=== PATIENT | female | born 1960 | race Two or more races ===

== ENCOUNTER 2017-03-26 10:23 | Emergency (ER) | payer MEDICAID, OTHER ==
[~2017-03-26] VITALS: Ht 165.1 cm; Wt 104.3 kg
[~2017-03-26 10:23] MED LIST: TAMO20TA4 PO
[2017-03-26 10:25] VITALS: BP 151/100
[2017-03-26] MEDS ORDERED: HYDROCODONE/APAP 5/325MG 1 EACH TABLET ONE (10:43)
[2017-03-26] MEDS ORDERED: HYDROCODONE/APAP 5/325MG 1 EACH TABLET PO ONE (11:00)
== END 2017-03-26 12:48 | disposition home or self-care (01) ==
LOC: ER 10:26
DX: S62.002A Unspecified fracture of navicular [scaphoid] bone of left wrist, initial encounter for closed fracture (principal); Z85.3 Personal history of malignant neoplasm of breast; W01.0XXA Fall on same level from slipping, tripping and stumbling without subsequent striking against object, initial encounter; Y93.89 Activity, other specified; Y92.89 Other specified places as the place of occurrence of the external cause; Y99.9 Unspecified external cause status
CPT/HCPCS: 29125; 73110; 99284; A4606; Z7610

== ENCOUNTER 2017-06-14 11:55 | Emergency (ER) | payer OTHER ==
[~2017-06-14] VITALS: Ht 167.6 cm; Wt 104.3 kg
--- NOTE | 2017-06-14 12:02 | NUR ---
PATIENT TO ED ACCOMPANIED BY SON DT LEFT KNEE PAIN SP FALL YESTERDAY, 02/10, ACHING NON RADIATING. PATIENT ABLE TO AMBULATE. NO OBVIOUS DEFORMITY NOTED. VSS
--- NOTE | 2017-06-14 12:06 | NUR ---
MD PYLE AT BEDSIDE
--- NOTE | 2017-06-14 12:15 | NUR ---
EXAMINING OFFICER AT BEDSIDE FOR KNEE XRAY
[2017-06-14] MEDS ORDERED: IBUPROFEN 600 MG TABLET PO ONE ×2 (12:26→12:30)
--- NOTE | 2017-06-14 12:28 | NUR ---
MEDICATED PT ORDERED
[2017-06-14 13:08] VITALS: BP 140/88
--- NOTE | 2017-06-14 13:08 | NUR ---
Patient discharged to home in stable condition. Written and verbal after care instructions given. Patient verbalizes understanding of instruction.
--- NOTE | 2017-06-14 13:19 | NUR ---
AWAITING FOR CD
== END 2017-06-14 13:22 | disposition home or self-care (01) ==
LOC: ER 11:56
DX: S89.92XA Unspecified injury of left lower leg, initial encounter (principal); Z85.3 Personal history of malignant neoplasm of breast; W18.2XXA Fall in (into) shower or empty bathtub, initial encounter; Y93.89 Activity, other specified; Y92.89 Other specified places as the place of occurrence of the external cause; Y99.9 Unspecified external cause status
CPT/HCPCS: 73564; 99284; A4606; Z7610

== ENCOUNTER 2017-10-25 19:57 | Emergency (ER) | payer OTHER ==
[~2017-10-25] VITALS: Ht 162.6 cm; Wt 108.0 kg
[2017-10-25 20:33] VITALS: BP 165/100
--- NOTE | 2017-10-25 20:35 | NUR ---
BB SELF FROM HOME WITH C/C OF COUGH AND CONGESTION X 1 MONTH, WITH C/O GENERALIZED BODY PAINS X 1 MONTH. LUNG SOUNDS CLEAR AND RESP EVEN AND UNLABORED. AMBULATORY WITH STEADY GAIT. SKIN WARM AND PINK. PT SPEAKS IN FULL SENTENCES. VSS AND NAD NOTED. AWAITING MD FOR EVAL.
== END 2017-10-25 21:02 | disposition home or self-care (01) ==
LOC: ER 19:57
DX: J20.9 Acute bronchitis, unspecified (principal); I10 Essential (primary) hypertension; R13.10 Dysphagia, unspecified; Z85.3 Personal history of malignant neoplasm of breast
CPT/HCPCS: 99283; A4606; Z7610

== ENCOUNTER 2020-12-27 15:13 | Emergency (ER) | payer OTHER ==
[~2020-12-27] VITALS: Ht 167.6 cm; Wt 108.9 kg
--- NOTE | 2020-12-27 15:34 | NUR ---
THE PATIENT IS BIB DAUGHTER FOR L FLANK PAIN X 4 DAYS, WORST TODAY. JUST FINISHED BACTRIM 2 DAYS. THE PATIENT RATES PAIN 10/10. DENIES NAUSEA AND VOMITING AT THIS TIME. IN ROOM AIR AND DENIES SOB. RESPIRATION REGULAR AND UNLABORED. WILL CONTINUE TO MONITOR.
[2020-12-27 15:58] LABS: BASOPHILS % (AUTO) 0.9 % (0.0-2.0); EOSINOPHILS % (AUTO) 1.4 % (0.0-6.0); HEMATOCRIT 40 % (33-45); HEMOGLOBIN 13.2 g/dL (11.5-14.8); LYMPHOCYTES # (AUTO) 1.8 /CMM (0.8-4.8); LYMPHOCYTES % (AUTO) 40.4 % (20.0-44.0); MEAN CORPUSCULAR HGB CONC 33 g/dl (31.0-36.0); MEAN CORPUSCULAR VOLUME 89 fL (82-100); MONOCYTES # (AUTO) 0.4 /CMM (0.1-1.30); MONOCYTES % (AUTO) 9.8 % (2.0-12.0); NEUTROPHILS # (AUTO) 2.2 /CMM (1.8-8.9); NEUTROPHILS % (AUTO) 47.5 % (43.0-81.0); PLATELET COUNT (AUTO) 267 /CMM (150-450); RED BLOOD CELL COUNT(AUTO) 4.45 MIL/uL (4.0-5.2); WHITE BLOOD COUNT (AUTO) 4.5 K/uL (4.3-11.0)
[2020-12-27] MEDS ORDERED: KETOROLAC TROMETHAMINE 15 MG/ML VIAL ONE (15:59)
[2020-12-27] MEDS ORDERED: KETOROLAC TROMETHAMINE INJ 30 MG/ML VIAL IV ONE (16:00)
[2020-12-27] MEDS ORDERED: MORPHINE SULFATE INJ 4 MG/ML DISP.SYRIN ONE (16:00)
[2020-12-27] MEDS ORDERED: MORPHINE SULFATE INJ 2 MG/ML DISP.SYRIN IV ONE (16:00)
[2020-12-27] MEDS ORDERED: ONDANSETRON HCL/PF 4 MG/2 ML VIAL ONE (16:00)
[2020-12-27] MEDS ORDERED: ONDANSETRON HCL/PF 4 MG/2 ML VIAL IVP ONE (16:00)
[2020-12-27 16:01] LABS: BILIRUBIN,URINE Negative (NEGATIVE); COLOR,URINE YELLOW (YELLOW); LEUKOCYTE ESTERASE ,URINE Trace (NEGATIVE); NITRITE, URINE Negative (NEGATIVE); PH,URINE 6.5 (5.0-8.0); PROTEIN,URINE Trace mg/dl (NEGATIVE); UGLUCOSE Negative (NEGATIVE); UROBILINOGEN,URINE 0.2 EU/dL (0.2)
[2020-12-27 16:06] LABS: BACTERIA,URINE Few /HPF (None Seen); RBC,URINE 21-50 /HPF (0-2)
[2020-12-27 16:07] LABS: SQUAMOUS EPITHELIAL CELL,UR Moderate /HPF (None Seen)
[2020-12-27] MEDS ORDERED: IV NS 0.9% 250 ML IV ONE (16:14)
[2020-12-27] MEDS ORDERED: CT SWABBABLE VALVE TRANS SET 1 EA INFUS.SET MC ONE (16:14)
[2020-12-27] MEDS ORDERED: IOHEXOL-300 100 ML VIAL IV ONE (16:14)
[2020-12-27 16:27] LABS: CALCIUM, SERUM 8.8 mg/dL (8.5-10.1); CREATININE 0.6 mg/dL (0.6-1.3); POTASSIUM 3.6 mmol/L (3.5-5.1)
[2020-12-27 16:32] LABS: ALBUMIN 3.7 g/dL (3.4-5.0); BILIRUBIN,DIRECT 0.1 mg/dL (0.0-0.2); BILIRUBIN,TOTAL 0.2 mg/dL (0.2-1.0); TOTAL PROTEIN, SERUM 7.4 g/dL (6.4-8.2)
--- NOTE | 2020-12-27 16:35 | NUR ---
PATIENT TAKEN FOR CT
[2020-12-27] MEDS ORDERED: DIAZ2TAB PO (17:13)
[2020-12-27] MEDS ORDERED: NAPR-1009 PO (17:13)
--- NOTE | 2020-12-27 17:26 | NUR ---
The patient is alert and oriented x4. Denies SOB. Respiration regular and unlabored. Denies pain. Patient discharged to home in stable condition. Prescriptions given, written and verbal after care instructions given. Patient verbalizes understanding of instruction.
[2020-12-27 17:27] VITALS: BP 141/76
== END 2020-12-27 17:28 | disposition home or self-care (01) ==
LOC: ER 15:18
DX: M54.5 Low back pain (principal); R10.32 Left lower quadrant pain; I10 Essential (primary) hypertension; Z98.890 Other specified postprocedural states; Z85.3 Personal history of malignant neoplasm of breast; Z79.899 Other long term (current) drug therapy
CPT/HCPCS: 36415; 74177; 80048; 80076; 81001; 83690; 84703; 85025; 96374; 96375; 99285; J1885; J2270; J2405; J7050; Q9967

== ENCOUNTER 2022-02-22 16:33 | Emergency (ER) | payer MEDICAID, OTHER ==
[~2022-02-22] VITALS: Ht 167.6 cm; Wt 112.5 kg
[~2022-02-22 16:33] MED LIST changes: +DIAZ2TAB PO; +NAPR-1009 PO
--- NOTE | 2022-02-22 16:33 | NUR ---
PT BIB C/O R KNEE, R FOOT AND L ARM PAIN S/P GLF. PT IS AAOX4, NOT IN RESPIRATORY DISTRESS, V/S STABLE, KEPT RESTED AND COMFORTABLE. WILL CONTINUE TO MONITOR.
[2022-02-22] MEDS ORDERED: KETOROLAC TROMETHAMINE INJ 30 MG/ML VIAL IM ONE (17:30)
[2022-02-22] MEDS ORDERED: KETOROLAC TROMETHAMINE INJ 30 MG/ML VIAL ONE (17:33)
[2022-02-22] MEDS ORDERED: CYCL5TAB PO (18:39)
[2022-02-22] MEDS ORDERED: HYDR-4209 PO (18:39)
[2022-02-22] MEDS ORDERED: CYCLOBENZAPRINE 10 MG TABLET ONE (18:52)
--- NOTE | 2022-02-22 18:54 | NUR ---
Patient discharged to home in stable condition. Written and verbal after care instructions given. Patient verbalizes understanding of instruction.
[2022-02-22 18:55] VITALS: BP 149/99
[2022-02-22] MEDS ORDERED: CYCLOBENZAPRINE 10 MG TABLET PO ONE (19:00)
== END 2022-02-22 18:55 | disposition home or self-care (01) ==
LOC: ER 16:35
DX: S92.334A Nondisplaced fracture of third metatarsal bone, right foot, initial encounter for closed fracture (principal); I10 Essential (primary) hypertension; Z85.3 Personal history of malignant neoplasm of breast; Z79.899 Other long term (current) drug therapy; W01.0XXA Fall on same level from slipping, tripping and stumbling without subsequent striking against object, initial encounter; Y93.89 Activity, other specified; Y92.89 Other specified places as the place of occurrence of the external cause; Y99.8 Other external cause status
CPT/HCPCS: 73080; 73564; 73630; 96372; 99284; J1885

== ENCOUNTER 2022-04-21 00:48 | Emergency (ER) | payer MEDICAID ==
[~2022-04-21] VITALS: Ht 167.6 cm; Wt 108.9 kg
[~2022-04-21 00:48] MED LIST changes: +CYCL5TAB PO; +HYDR-4209 PO
[2022-04-21] MEDS ORDERED: ONDANSETRON HCL/PF 4 MG/2 ML VIAL ONE (00:58)
[2022-04-21] MEDS ORDERED: KETOROLAC TROMETHAMINE 15 MG/ML VIAL ONE (00:58)
[2022-04-21] MEDS ORDERED: KETOROLAC TROMETHAMINE INJ 30 MG/ML VIAL IV ONE (01:00)
[2022-04-21] MEDS ORDERED: ONDANSETRON HCL/PF 4 MG/2 ML VIAL IVP ONE (01:00)
--- NOTE | 2022-04-21 01:00 | NUR ---
BIBS C/O RIGHT FLANK PAIN RADIATING TO RIGHT LOWER ABD X1DAY +N/V. PATIENT ALERT AND ORIENTED X3. AMBULATORY WITH NON LABORED BREATHING IN BED 10 SEEN BY MD AT TRIAGE PT ON MONITOR AND POX.
--- NOTE | 2022-04-21 01:10 | NUR ---
URINE COLLECTED AND SENTT O LAB
--- NOTE | 2022-04-21 01:13 | NUR ---
BLOOD COLLECTED AND SENT TO LAB
[2022-04-21 01:36] LABS: BASOPHILS % (AUTO) 0.3 % (0.0-2.0); EOSINOPHILS % (AUTO) 1.2 % (0.0-6.0); HEMATOCRIT 41 % (33-45); HEMOGLOBIN 13.7 g/dL (11.5-14.8); LYMPHOCYTES # (AUTO) 2.9 K/uL (0.8-4.8); LYMPHOCYTES % (AUTO) 42.7 % (20.0-44.0); MEAN CORPUSCULAR HGB CONC 34 g/dl (31.0-36.0); MEAN CORPUSCULAR VOLUME 87 fL (82-100); MONOCYTES # (AUTO) 0.7 K/uL (0.1-1.30); MONOCYTES % (AUTO) 9.7 % (2.0-12.0); NEUTROPHILS # (AUTO) 3.2 K/uL (1.8-8.9); NEUTROPHILS % (AUTO) 46.1 % (43.0-81.0); PLATELET COUNT (AUTO) 345 K/uL (150-450); RED BLOOD CELL COUNT(AUTO) 4.66 MIL/uL (4.0-5.2); WHITE BLOOD COUNT (AUTO) 6.8 K/uL (4.3-11.0)
[2022-04-21 01:39] LABS: BILIRUBIN,URINE NEGATIVE (NEGATIVE); COLOR,URINE YELLOW (YELLOW); LEUKOCYTE ESTERASE ,URINE TRACE (NEGATIVE); NITRITE, URINE NEGATIVE (NEGATIVE); PH,URINE 5.5 (5.0-8.0); PROTEIN,URINE TRACE mg/dl (NEGATIVE); UGLUCOSE NEGATIVE (NEGATIVE); UROBILINOGEN,URINE 0.2 EU/dL (0.2)
[2022-04-21 01:44] LABS: BACTERIA,URINE Few /HPF (None Seen)
[2022-04-21 01:45] LABS: CALCIUM OXALATE CRYSTALS,UR Few /HPF (None Seen); SQUAMOUS EPITHELIAL CELL,UR Few /HPF (None Seen)
[2022-04-21 01:54] LABS: CREATININE 1.2 mg/dL (0.6-1.3); POTASSIUM 3.7 mmol/L (3.5-5.1)
[2022-04-21] MEDS ORDERED: MORPHINE SULFATE INJ 4 MG/ML DISP.SYRIN ONE (02:32)
[2022-04-21] MEDS ORDERED: MORPHINE SULFATE INJ 2 MG/ML DISP.SYRIN IV ONE (03:00)
[2022-04-21] MEDS ORDERED: OXYC-128 PO (03:46)
[2022-04-21] MEDS ORDERED: ONDA4TAB11 PO (03:46)
[2022-04-21] MEDS ORDERED: TAMS-12 PO (03:46)
[2022-04-21 03:53] VITALS: BP 165/98
--- NOTE | 2022-04-21 03:53 | NUR ---
Patient discharged to home in stable condition. Written and verbal after care instructions given. Patient verbalizes understanding of instruction.
== END 2022-04-21 03:54 | disposition home or self-care (01) ==
LOC: ER 00:50
DX: N20.0 Calculus of kidney (principal); I10 Essential (primary) hypertension; Z85.3 Personal history of malignant neoplasm of breast; Z79.899 Other long term (current) drug therapy
CPT/HCPCS: 99284; 74176; 96374; 96375; 85025; 80048; 87086; 81001; 36415; J2270; J2405; J1885

== ENCOUNTER 2022-06-12 20:39 | Emergency (ER) | payer MEDICAID ==
[~2022-06-12] VITALS: Ht 167.6 cm; Wt 112.5 kg
[~2022-06-12 20:39] MED LIST changes: +ONDA4TAB11 PO; +OXYC-128 PO; +TAMS-12 PO
--- NOTE | 2022-06-12 21:15 | NUR ---
BIBS. TO ER BED 12. AAOX4. NOT IN RESP DISTRESS. AMBULATORY. CAME IN FOR R FLANK PAIN X TODAY. 07/13 [place]. PT IS ALSO NOTED HYPERTENSIVE @ 218/120. MADE AWARE. URINE COLLECTED AND SENT TO LAB
[2022-06-12] MEDS ORDERED: ONDANSETRON HCL/PF 4 MG/2 ML VIAL IVP ONE (21:30)
[2022-06-12] MEDS ORDERED: IV NS 0.9% 1,000 ML BAG IV ONE (21:30)
[2022-06-12] MEDS ORDERED: MORPHINE SULFATE INJ 2 MG/ML DISP.SYRIN IV ONE (21:30)
[2022-06-12] MEDS ORDERED: MORPHINE SULFATE INJ 4 MG/ML DISP.SYRIN ONE (21:33)
[2022-06-12] MEDS ORDERED: ONDANSETRON HCL/PF 4 MG/2 ML VIAL ONE (21:33)
[2022-06-12 21:39] LABS: BILIRUBIN,URINE NEGATIVE (NEGATIVE); COLOR,URINE YELLOW (YELLOW); LEUKOCYTE ESTERASE ,URINE TRACE (NEGATIVE); NITRITE, URINE NEGATIVE (NEGATIVE); PROTEIN,URINE TRACE mg/dl (NEGATIVE); UGLUCOSE NEGATIVE (NEGATIVE); UROBILINOGEN,URINE 0.2 EU/dL (0.2)
[2022-06-12 21:40] LABS: BASOPHILS % (AUTO) 0.6 % (0.0-2.0); EOSINOPHILS % (AUTO) 1.5 % (0.0-6.0); HEMATOCRIT 39 % (33-45); HEMOGLOBIN 12.8 g/dL (11.5-14.8); LYMPHOCYTES # (AUTO) 1.9 K/uL (0.8-4.8); LYMPHOCYTES % (AUTO) 35.5 % (20.0-44.0); MEAN CORPUSCULAR HGB CONC 32 g/dl (31.0-36.0); MEAN CORPUSCULAR VOLUME 88 fL (82-100); MONOCYTES # (AUTO) 0.5 K/uL (0.1-1.30); MONOCYTES % (AUTO) 8.4 % (2.0-12.0); PLATELET COUNT (AUTO) 259 K/uL (150-450); RED BLOOD CELL COUNT(AUTO) 4.47 MIL/uL (4.0-5.2); WHITE BLOOD COUNT (AUTO) 5.5 K/uL (4.3-11.0)
--- NOTE | 2022-06-12 21:42 | NUR ---
20G IV ESTABLISHED AT [facility]. BLOOD COLLECTED AND SENT TO LAB. MEDICATIONS ADMINSTERED PER MD ORDER.
[2022-06-12 21:49] LABS: BACTERIA,URINE 1+ /HPF (None Seen); RBC,URINE 51-80 /HPF (0-2)
--- NOTE | 2022-06-12 21:50 | NUR ---
PT BEING TRANSPORTED TO CT
[2022-06-12 22:00] LABS: CALCIUM, SERUM 9.2 mg/dL (8.5-10.1); CREATININE 0.7 mg/dL (0.6-1.3); POTASSIUM 3.8 mmol/L (3.5-5.1)
[2022-06-12 22:05] LABS: ALBUMIN 3.6 g/dL (3.4-5.0); BILIRUBIN,DIRECT 0.1 mg/dL (0.0-0.2); BILIRUBIN,TOTAL 0.2 mg/dL (0.2-1.0); TOTAL PROTEIN, SERUM 7.2 g/dL (6.4-8.2)
[2022-06-12] MEDS ORDERED: KETOROLAC TROMETHAMINE INJ 30 MG/ML VIAL IV ONE (22:30)
[2022-06-12] MEDS ORDERED: KETOROLAC TROMETHAMINE INJ 30 MG/ML VIAL ONE (22:33)
[2022-06-12] MEDS ORDERED: HYDR-4275 PO (23:48)
[2022-06-12] MEDS ORDERED: ONDA4TAB5 PO (23:48)
[2022-06-12] MEDS ORDERED: CEPH500T PO (23:48)
[2022-06-12] MEDS ORDERED: IBUP-1957 PO (23:48)
[2022-06-12] MEDS ORDERED: CEPHALEXIN MONOHYDRATE 500 MG CAPSULE PO ONE (23:53)
[2022-06-13] MEDS ORDERED: CEPHALEXIN MONOHYDRATE 500 MG CAPSULE PO ONE
--- NOTE | 2022-06-13 00:02 | NUR ---
Patient discharged to home in stable condition. Written and verbal after care instructions given. Patient verbalizes understanding of instruction.IV removed. Catheter intact and site benign. Pressure and 4x4 applied to site. No bleeding noted.
[2022-06-13 00:57] VITALS: BP 173/89
== END 2022-06-13 00:03 | disposition home or self-care (01) ==
LOC: ER 20:43
DX: N20.0 Calculus of kidney (principal); N39.0 Urinary tract infection, site not specified; I10 Essential (primary) hypertension; Z85.3 Personal history of malignant neoplasm of breast; Z90.49 Acquired absence of other specified parts of digestive tract; Z79.899 Other long term (current) drug therapy
CPT/HCPCS: 99285; 74176; 96374; 71045; 96375; 96361; 93005; 85025; 80048; 83690; 80076; 81001; 36415; J2270; J1885; J2405; J7030